=== PATIENT | female | born 1995 ===

== ENCOUNTER → 2024-05-27 | Outpatient (CLI) | payer BC ==
[2024-05-27 16:28] LABS: Bacterial Vaginosis PCR Negative (NEGATIVE); Candida glabrata-krusei, PCR NOT DETECTED (NOT DETECT)
[2024-05-27 16:33] LABS: Candida Group, PCR DETECTED (NOT DETECT)
== END | disposition home or self-care (01) ==
LOC: LAB SHORT 10:48
PROVIDERS: Nurse Practitioner
DX: B37.9 Candidiasis, unspecified (principal)
CPT/HCPCS: 81515